=== PATIENT | female | born 1935 | race Caucasian/White ===

== ENCOUNTER → 2017-02-27 | Day surgery (SDC) | payer MEDICARE, OTHER ==
[~2017-02-27] MED LIST: Lactated Ringers 1,000 ML IV SCH; Propofol 200 MG/20 ML SDV IV ONE
[2017-02-27 11:02] VITALS: BP 136/52
--- NOTE | 2017-03-02 07:20 | OR ---
DATE OF OPERATION: 02/27/2017 PREOPERATIVE DIAGNOSIS: POSITIVE COLOGUARD. POSTOPERATIVE DIAGNOSIS: POSITIVE COLOGUARD. SURGEON: Tremaine Lopez MD PROCEDURE: FULL-LENGTH COLONOSCOPY. ANESTHESIA: DREDGE MATE due to advanced age, hypertension and chronic anxiety. COMPLICATIONS: None. SPECIMEN: None. FINDINGS: 1. Full-length colonoscopy. 2. Mild sigmoid diverticulosis. RECOMMENDATIONS: Medical followup Dr. Monzon. Colonoscopy on as-needed basis only. INDICATIONS: The patient reportedly had a positive Cologuard at home. She was sent for colonoscopy. DESCRIPTION OF PROCEDURE: The patient was prepped and draped, placed in the left lateral decubitus position. A lubricated Olympus colonoscope was inserted and easily advanced to the cecum. Direct visualization of the ileocecal valve was accomplished. The bowel prep was adequate. Upon withdrawal of the scope, throughout the entire length of the colon, I could find no obvious signs of mass, polyp, ulceration or bleeding sites. No vascular abnormalities or signs of colitis. The patient had a few scattered diverticula in the sigmoid area, but mild in severity. No inflammatory changes associated with this. The rectal vault was unremarkable. Retroflexion of the scope in the rectum showed no anal lesions. Air was then suctioned. Scope was removed without complication. YULISA/DANIEL /[id number]
== END ==
LOC: CC.SDS 09:00
PROVIDERS: ATTEND Family Medicine
DX: Z12.11 Encounter for screening for malignant neoplasm of colon (principal); K57.30 Diverticulosis of large intestine without perforation or abscess without bleeding; Z88.1 Allergy status to other antibiotic agents; Z88.2 Allergy status to sulfonamides; Z88.8 Allergy status to other drugs, medicaments and biological substances; F41.9 Anxiety disorder, unspecified; K21.9 Gastro-esophageal reflux disease without esophagitis; I10 Essential (primary) hypertension; E78.5 Hyperlipidemia, unspecified; E55.9 Vitamin D deficiency, unspecified; Z79.899 Other long term (current) drug therapy; Z90.49 Acquired absence of other specified parts of digestive tract; Z98.890 Other specified postprocedural states; Z87.891 Personal history of nicotine dependence; Z72.0 Tobacco use; D64.9 Anemia, unspecified
CPT/HCPCS: G0121; J2704; J7120; 00810

== ENCOUNTER 2018-09-18 21:47 | Observation (INO) | payer MEDICARE, OTHER ==
--- NOTE | 2018-09-18 22:06 | EDM.PDOC ---
ED HPI GENERAL MEDICAL PROBLEM - General Chief Complaint: Neuro Symptoms/Deficits Stated Complaint: "feel funny", "couldnt find my words" Time Seen by Provider: 09/18/18 21:49 Source of Information: Reports: Patient, Family (daughter) History Limitations: Reports: No Limitations - History of Present Illness INITIAL COMMENTS - FREE TEXT/NARRATIVE: This patient is an 82 year old female that presents to the ER. Patient is accompanied by her daughter. The patient reports that she was sitting at home talking with her daughter and was talking about someone needing a job. She reports that while she was talking to her daughter, for about a minute she could not find the words she wanted to say. She reports she could not thin of the words. She reports she just felt lost in conversation for a minute. The daughter reports she was just acting weird for a minute and did not talk, like she could not find the words to say. The patient reports that she currently feels nauseated. She reports that during the episode and now she denies yung, dizziness, v, d, f, congestion, drainage, cough, chest pain, shortness of breath , palpitations, abd pain, urinary/bowel changes, rash. The patient is fully alert and oriented. She has no unilateral weakness. Her stroke score in ER is 0. The patient reports she feels generally weak, but no focal weakness. A stroke code was called upn patient arrival due to patient initial cheif complaint of dysphagia, which has since completely resolved. Patient was just admitted in the hospital on 09/07/18 for hyponatremia, hypomagnesium, renal insufficiency, and a-fib. Onset: Today Onset Date: 09/18/18 Onset Time: 21:00 Duration: Minutes: (1) Severity: Mild Improves with: Reports: None Worsens with: Reports: None Associated Symptoms: Reports: Nausea/Vomiting, Weakness (generalized). Denies: Confusion, Chest Pain, Cough, cough w sputum, Diaphoresis, Fever/Chills, Headaches, Loss of Appetite, Malaise, Rash, Seizure, Shortness of Breath, Syncope - Related Data Allergies Allergy/AdvReac Type Severity Reaction Status Date / Time cefaclor [From Ceclor] Allergy Rash Verified 09/18/18 22:34 sulfamethoxazole Allergy Rash Verified 09/18/18 22:34 [From Bactrim] trimethoprim [From Bactrim] Allergy Rash Verified 09/18/18 22:34 Home Meds: Home Meds Fluticasone Propionate [Flonase] 1 spray NASBOTH DAILY PRN 10/23/14 [History] LORazepam [Ativan] 0.25 mg PO DAILY PRN 10/23/14 [History] Metoprolol Succinate [Toprol XL] 25 mg PO BEDTIME 10/23/14 [History] amLODIPine Besylate [Amlodipine Besylate] 2.5 mg PO BEDTIME 10/23/14 [History] Cholecalciferol (Vitamin D3) [Vitamin D3] 5,000 unit PO DAILY 02/26/17 [History] Ibuprofen 200 mg PO Q6H PRN 02/26/17 [History] Omeprazole Magnesium [Prilosec Otc] 20 mg PO DAILY PRN 02/26/17 [History] Candesartan Cilexetil 32 mg PO DAILY 09/07/18 [History] Chlorthalidone 25 mg PO DAILY 09/07/18 [History] hydrALAZINE HCl [Hydralazine HCl] 25 mg PO BID 09/07/18 [History] Past Medical History HEENT History: Reports: Allergic Rhinitis, Impaired Vision, Sinusitis, Other ( See Below) Other HEENT History: TMJ arthralgia Cardiovascular History: Reports: High Cholesterol, Hypertension, Other (See Below) Other Cardiovascular History: Palpitations Gastrointestinal History: Reports: Chronic Constipation, Gastritis, GERD Genitourinary History: Reports: Other (See Below) Other Genitourinary History: nocturia HYGIENE COORDINATOR History: Reports: Other (See Below) Other HYGIENE COORDINATOR History: enlarged utereus Musculoskeletal History: Reports: Arthritis, Osteoporosis, Other (See Below) Other Musculoskeletal History: Impingement syndrome of both shoulders Neurological History: Reports: Headaches, Chronic Psychiatric History: Reports: Anxiety, Other (See Below) Other Psychiatric History: Insomnia Endocrine/Metabolic History: Reports: Vitamin D Deficiency - Past Surgical History HEENT Surgical History: Reports: Cataract Surgery, Tonsillectomy Social & Family History - Family History Family Medical History: Noncontributory Cardiac: Reports: Hypertension - Tobacco Use Smoking Status *Q: Never Smoker - Caffeine Use Caffeine Use: Reports: Coffee - Recreational Drug Use Recreational Drug Use: No ED ROS GENERAL - Review of Systems Review Of Systems: See Below Constitutional: Reports: Weakness (generalized) HEENT: Reports: No Symptoms Respiratory: Reports: No Symptoms Cardiovascular: Reports: No Symptoms Endocrine: Reports: No Symptoms GI/Abdominal: Reports: Nausea. Denies: Abdominal Pain, Diarrhea, Vomiting : Reports: No Symptoms Musculoskeletal: Reports: No Symptoms Skin: Reports: No Symptoms Neurological: Reports: Trouble Speaking (dysphasia). Denies: Confusion, Dizziness, Headache, Numbness, Seizure, Syncope, Tingling, Tremors Psychiatric: Reports: No Symptoms Hematologic/Lymphatic: Reports: No Symptoms Immunologic: Reports: No Symptoms ED EXAM, NEURO - Physical Exam Exam: See Below Exam Limited By: No Limitations General Appearance: Alert, WD/WN, No Apparent Distress Eye Exam: Bilateral Eye: EOMI, Normal Inspection, PERRL Ears: Normal External Exam, Normal Canal, Hearing Grossly Normal, Normal TMs Nose: Normal Inspection, Normal Mucosa, No Blood Throat/Mouth: Normal Inspection, Normal Lips, Normal Teeth, Normal Gums, Normal Oropharynx, Normal Voice, No Airway Compromise Head Exam: Atraumatic, Normocephalic Neck: Normal Inspection, Supple, Non-Tender, Full Range of Motion Respiratory/Chest: No Respiratory Distress, Lungs Clear, Normal Breath Sounds, No Accessory Muscle Use, Chest Non-Tender Cardiovascular: Normal Peripheral Pulses, Regular Rate, Rhythm, No Edema, No Gallop, No JVD, No Murmur, No Rub GI/Abdominal: Normal Bowel Sounds, Soft, Non-Tender, No Organomegaly, No Distention, No Abnormal Bruit, No Mass, Pelvis Stable (Female) Exam: Deferred Rectal (Female) Exam: Deferred Neurological: Alert, Normal Mood/Affect, Normal Dorsiflexion, CN II-XII Intact, Normal Plantar Flexion, Normal Gait, No Motor/Sensory Deficits, Oriented x 3. No: Abnormal Gait, Ataxia, Abnormal Sensation Back Exam: Normal Inspection, Full Range of Motion. No: CVA Tenderness (L), CVA Tenderness (R) Extremities: Normal Inspection, Normal Range of Motion, Non-Tender, No Pedal Edema, Normal Capillary Refill Psychiatric: Normal Affect, Normal Mood Skin Exam: Warm, Dry, Intact, Normal Color, No Rash EKG INTERPRETATION EKG Date: 09/18/18 Time: 21:56 Rhythm: NSR Rate (Beats/Min): 76 QRS: Other (1st degree AV block with PVCs.) Comparison: Change From Previous EKG (last ekg a-fib. No a-fib this ekg.) Course - Vital Signs Last Recorded V/S: Last Vital Signs Temp 98.4 F 09/18/18 22:15 Pulse 72 09/18/18 22:15 Resp 18 09/18/18 22:15 BP 151/82 H 09/18/18 22:15 Pulse Ox 97 09/18/18 22:15 - Orders/Labs/Meds Orders: Active Orders 24 hr Category Date Time Status Chest 2V [CR] Routine Exams 09/18/18 Taken Head wo Cont [CT] Routine Exams 09/18/18 22:43 Taken EKG 12 Lead [EK] Routine Ther 09/18/18 22:29 Ordered Labs: Laboratory Tests 09/18/18 09/18/18 09/18/18 Range/Units 22:05 22:05 22:05 WBC 9.0 (5.0-10.0) 10^3/uL RBC 4.03 (4.00-5.50) 10^6/uL Hgb 11.7 L (12.0-16.0) g/dL Hct 35.0 L (37.0-47.0) % MCV 86.8 (82.0-94.0) fL MCH 29.0 (27.0-32.0) pg MCHC 33.4 (33.0-38.0) g/dL RDW Coeff of Walt 14.4 (11.0-15.0) % Plt Count 215 (150-400) 10^3/uL Neut % (Auto) 49.4 (35-85) % Lymph % (Auto) 37.4 (10-55) % [place] % (Auto) 11.1 (0-16) % Eos % (Auto) 1.8 (0-5) % Baso % (Auto) 0.3 (0-3) % Neut # (Auto) 4.46 (1.80-7.00) 10^3/uL Lymph # (Auto) 3.37 (1.00-4.80) 10^3/uL [place] # (Auto) 1.00 H (0.00-0.80) 10^3/uL Eos # (Auto) 0.16 (0.00-0.45) 10^3/uL Baso # (Auto) 0.03 10^3/uL PT 9.8 (9.7-12.3) SEC INR 0.94 (0.92-1.18) Sodium 132 L (136-145) mEq/L Potassium 4.0 (3.5-5.0) mEq/L Chloride 96 L (98-106) mEq/L Carbon Dioxide 26 (21-32) mmol/L BUN 23 H (7-18) mg/dL Creatinine 1.6 H (0.6-1.0) mg/dL Est Cr Clr Drug Dosing 23.97 mL/min Estimated GFR (MDRD) 31 L (>=60) mL/min Glucose 117 H (75-99) mg/dL Calcium 8.9 (8.4-10.1) mg/dL Magnesium 1.9 (1.8-2.4) mg/dL Total Bilirubin 0.2 (0.0-1.0) mg/dL AST 12 L (15-37) U/L ALT 19 (12-78) U/L Alkaline Phosphatase 86 (46-116) U/L Troponin I < 0.017 (0.00-0.06) ng/mL Total Protein 6.7 (6.4-8.2) g/dL Albumin 2.9 L (3.4-5.0) g/dL Urine Color (YELLOW) Urine Appearance (CLEAR) Urine pH (4.5-8.0) Ur Specific [place] (1.003-1.020) Urine Protein (NEGATIVE) mg/dL Urine Glucose (UA) (NEGATIVE) mg/dL Urine Ketones (NEGATIVE) mg/dL Urine Occult Blood (NEGATIVE) Urine Nitrite (NEGATIVE) Urine Bilirubin (NEGATIVE) Urine Urobilinogen (0.2-1.0) EU/dL Ur Leukocyte Esterase (NEGATIVE) Urine RBC (0-5) /HPF Urine WBC (0-5) /HPF Ur Epithelial Cells (NOT SEEN) /HPF Urine Mucus (NOT SEEN) /HPF 09/18/18 Range/Units 22:20 WBC (5.0-10.0) 10^3/uL RBC (4.00-5.50) 10^6/uL Hgb (12.0-16.0) g/dL Hct (37.0-47.0) % MCV (82.0-94.0) fL MCH (27.0-32.0) pg MCHC (33.0-38.0) g/dL RDW Coeff of Walt (11.0-15.0) % Plt Count (150-400) 10^3/uL Neut % (Auto) (35-85) % Lymph % (Auto) (10-55) % [place] % (Auto) (0-16) % Eos % (Auto) (0-5) % Baso % (Auto) (0-3) % Neut # (Auto) (1.80-7.00) 10^3/uL Lymph # (Auto) (1.00-4.80) 10^3/uL [place] # (Auto) (0.00-0.80) 10^3/uL Eos # (Auto) (0.00-0.45) 10^3/uL Baso # (Auto) 10^3/uL PT (9.7-12.3) SEC INR (0.92-1.18) Sodium (136-145) mEq/L Potassium (3.5-5.0) mEq/L Chloride (98-106) mEq/L Carbon Dioxide (21-32) mmol/L BUN (7-18) mg/dL Creatinine (0.6-1.0) mg/dL Est Cr Clr Drug Dosing mL/min Estimated GFR (MDRD) (>=60) mL/min Glucose (75-99) mg/dL Calcium (8.4-10.1) mg/dL Magnesium (1.8-2.4) mg/dL Total Bilirubin (0.0-1.0) mg/dL AST (15-37) U/L ALT (12-78) U/L Alkaline Phosphatase (46-116) U/L Troponin I (0.00-0.06) ng/mL Total Protein (6.4-8.2) g/dL Albumin (3.4-5.0) g/dL Urine Color Light yellow (YELLOW) Urine Appearance Clear (CLEAR) Urine pH 6.0 (4.5-8.0) Ur Specific [place] 1.010 (1.003-1.020) Urine Protein Negative (NEGATIVE) mg/dL Urine Glucose (UA) Negative (NEGATIVE) mg/dL Urine Ketones Negative (NEGATIVE) mg/dL Urine Occult Blood Negative (NEGATIVE) Urine Nitrite Negative (NEGATIVE) Urine Bilirubin Negative (NEGATIVE) Urine Urobilinogen 0.2 (0.2-1.0) EU/dL Ur Leukocyte Esterase Small H (NEGATIVE) Urine RBC Not seen (0-5) /HPF Urine WBC 0-5 (0-5) /HPF Ur Epithelial Cells Few H (NOT SEEN) /HPF Urine Mucus Occasional H (NOT SEEN) /HPF - Radiology Interpretation Free Text/Narrative:: Head CT: No intracranial abnormality. no bleed, no mass, no shift. CXR: No infiltrates CT Results Date: 09/18/18 CT Results Time: 22:00 - Re-Assessments/Exams Free Text/Narrative Re-Assessment/Exam: 09/18/18 22:31 Will admit for renal insufficiency and general weakness Departure - Departure Time of Disposition: 22:29 Disposition: Refer to Observation Condition: Fair Clinical Impression: Renal insufficiency - Discharge Information *PRESCRIPTION DRUG MONITORING PROGRAM REVIEWED*: Not Applicable *COPY OF PRESCRIPTION DRUG MONITORING REPORT IN PATIENT KORY: Not Applicable Referrals: Tremaine Lopez MD [Primary Care Provider] - Forms: ED Department Discharge - My Orders Last 24 Hours: My Active Orders 09/18/18 Chest 2V [CR] Routine 09/18/18 22:29 EKG 12 Lead [EK] Routine 09/18/18 22:43 Head wo Cont [CT] Routine - Assessment/Plan Last 24 Hours: My Active Orders 09/18/18 Chest 2V [CR] Routine 09/18/18 22:29 EKG 12 Lead [EK] Routine 09/18/18 22:43 Head wo Cont [CT] Routine Plan: PLEASE SEE RN NOTE FOR PFSH. PLEASE USE ER H&P FOR ADMIT H&P
[2018-09-18 22:22] LABS: CHLORIDE,CL 96 mEq/L (98-106); SODIUM,NA 132 mEq/L (136-145)
[2018-09-18] MEDS ORDERED: Sodium Chloride 0.9% 1,000 ML IV SCH (23:09)
[2018-09-18] MEDS ORDERED: Ondansetron 4 MG/2 ML SDV IV PRN (23:09)
[2018-09-18] MEDS ORDERED: Sodium Chloride 0.9% 250 ML IV SCH (23:09)
[2018-09-18] MEDS ORDERED: Ibuprofen 200 MG Tab PO PRN (23:26)
[2018-09-18] MEDS ORDERED: LORazepam 0.5 MG Tab PO PRN (23:30)
[2018-09-18] MEDS ORDERED: Enoxaparin 30 MG/0.3 ML Syringe SUBCUT ONE (23:30)
[2018-09-18] MEDS ORDERED: Fluticasone Propionate Nasal Spray 16 GM Bottle NASBOTH PRN (23:30)
[2018-09-19] MEDS ORDERED: Pantoprazole 40 MG Tab.CR PO SCH (07:00)
[2018-09-19] MEDS ORDERED: Pantoprazole 40 MG Tab.CR PO PRN (07:01)
[2018-09-19 07:30] VITALS: BP 144/65
[2018-09-19] MEDS ORDERED: HYDRALAZINE 25 MG PO SCH (08:00)
[2018-09-19] MEDS ORDERED: Cholecalciferol (Vitamin D3) 1,000 Unit Tab PO SCH (08:00)
[2018-09-19] MEDS ORDERED: Chlorthalidone 25 MG Tab PO SCH (08:00)
[2018-09-19] MEDS ORDERED: CANDESARTAN 32 MG PO SCH (08:00)
--- NOTE | 2018-09-19 10:21 | PCM.DCSUM1 ---
Discharge Summary - Hospital Course HPI Initial Comments: This patient was admitted yesterday for renal insufficiency with elevated CR and dysphasia brief that has since resolved. The patient today has no complaints. She denies yung, dizziness, n, v, d, f, cp, soa, weakness, focal weaknesses. The patient labs yesterday were BUN 23, CR 1.6. Today thyave have improved to BUN 18 and CR 1.1. The patient request to go home today. I agree witi this plan due to labs improved, no complaints since being admitted. The patient may discuss with PCP possible MRI if dysphasia returns or any other symptoms present. Diagnosis: Stroke: No Modified [place] Scale: No Symptoms at All Modified [place] Scale Score: 0 - Discharge Data Discharge Date: 09/19/18 Discharge Disposition: Home, Self-Care 01 Condition: Good - Patient Instructions Diet: Usual Diet as Tolerated Activity: As Tolerated Driving: Do Not Drive Showering/Bathing: May Shower Notify Provider of: Fever, Nausea and/or Vomiting - Discharge Plan *PRESCRIPTION DRUG MONITORING PROGRAM REVIEWED*: Not Applicable *COPY OF PRESCRIPTION DRUG MONITORING REPORT IN PATIENT KORY: Not Applicable Prescriptions/Med Rec: Omeprazole Magnesium [Prilosec Otc] 20 mg PO DAILY PRN #30 tablet.dr PACE Reason: Heartburn Home Medications: Home Meds Fluticasone Propionate [Flonase] 1 spray NASBOTH DAILY PRN 10/23/14 [History] LORazepam [Ativan] 0.25 mg PO DAILY PRN 10/23/14 [History] Metoprolol Succinate [Toprol XL] 25 mg PO BEDTIME 10/23/14 [History] amLODIPine Besylate [Amlodipine Besylate] 2.5 mg PO BEDTIME 10/23/14 [History] Cholecalciferol (Vitamin D3) [Vitamin D3] 5,000 unit PO DAILY 02/26/17 [History] Ibuprofen 200 mg PO Q6H PRN 02/26/17 [History] Candesartan Cilexetil 32 mg PO DAILY 09/07/18 [History] Chlorthalidone 25 mg PO DAILY 09/07/18 [History] hydrALAZINE HCl [Hydralazine HCl] 25 mg PO BID 09/07/18 [History] Omeprazole Magnesium [Prilosec Otc] 20 mg PO DAILY PRN #30 tablet. 09/19/18 [ Rx] Patient Handouts: Dehydration, Adult, [id number] Forms: ED Department Discharge Referrals: Tremaine Lopez MD [Primary Care Provider] - - Discharge Summary/Plan Comment DC Time >30 min.: No Discharge Summary/Plan Comment: Followup with your primary care provider Return to the ER for worsening of condition or any emergent concerns Increase fluids - General Info Date of Service: 09/19/18 Functional Status: Reports: Pain Controlled, Tolerating Diet, Ambulating, Urinating - Review of Systems General: Reports: No Symptoms HEENT: Reports: No Symptoms Pulmonary: Reports: No Symptoms Cardiovascular: Reports: No Symptoms Gastrointestinal: Reports: No Symptoms Genitourinary: Reports: No Symptoms Musculoskeletal: Reports: No Symptoms Skin: Reports: No Symptoms Neurological: Reports: No Symptoms Psychiatric: Reports: No Symptoms - Patient Data Vitals - Most Recent: Last Vital Signs Temp 98.1 F 09/19/18 07:25 Pulse 72 09/18/18 22:15 Resp 18 09/19/18 07:25 BP 144/65 H 09/19/18 07:30 Pulse Ox 97 09/19/18 07:25 Weight - Most Recent: 141 lb 3.2 oz Lab Results - Last 24 hrs: Laboratory Results - last 24 hr 09/18/18 09/18/18 09/18/18 Range/Units 22:05 22:05 22:05 WBC 9.0 (5.0-10.0) 10^3/uL RBC 4.03 (4.00-5.50) 10^6/uL Hgb 11.7 L (12.0-16.0) g/dL Hct 35.0 L (37.0-47.0) % MCV 86.8 (82.0-94.0) fL MCH 29.0 (27.0-32.0) pg MCHC 33.4 (33.0-38.0) g/dL RDW Coeff of [place] 14.4 (11.0-15.0) % Plt Count 215 (150-400) 10^3/uL Neut % (Auto) 49.4 (35-85) % Lymph % (Auto) 37.4 (10-55) % [place] % (Auto) 11.1 (0-16) % Eos % (Auto) 1.8 (0-5) % Baso % (Auto) 0.3 (0-3) % Neut # (Auto) 4.46 (1.80-7.00) 10^3/uL Lymph # (Auto) 3.37 (1.00-4.80) 10^3/uL [place] # (Auto) 1.00 H (0.00-0.80) 10^3/uL Eos # (Auto) 0.16 (0.00-0.45) 10^3/uL Baso # (Auto) 0.03 10^3/uL PT 9.8 (9.7-12.3) SEC INR 0.94 (0.92-1.18) Sodium 132 L (136-145) mEq/L Potassium 4.0 (3.5-5.0) mEq/L Chloride 96 L (98-106) mEq/L Carbon Dioxide 26 (21-32) mmol/L BUN 23 H (7-18) mg/dL Creatinine 1.6 H (0.6-1.0) mg/dL Est Cr Clr Drug Dosing 23.97 mL/min Estimated GFR (MDRD) 31 L (>=60) mL/min Glucose 117 H (75-99) mg/dL Calcium 8.9 (8.4-10.1) mg/dL Magnesium 1.9 (1.8-2.4) mg/dL Total Bilirubin 0.2 (0.0-1.0) mg/dL AST 12 L (15-37) U/L ALT 19 (12-78) U/L Alkaline Phosphatase 86 (46-116) U/L Troponin I < 0.017 (0.00-0.06) ng/mL NT-Pro-B Natriuret Pep (0-1000) pg/mL Total Protein 6.7 (6.4-8.2) g/dL Albumin 2.9 L (3.4-5.0) g/dL Urine Color (YELLOW) Urine Appearance (CLEAR) Urine pH (4.5-8.0) Ur Specific [place] (1.003-1.020) Urine Protein (NEGATIVE) mg/dL Urine Glucose (UA) (NEGATIVE) mg/dL Urine Ketones (NEGATIVE) mg/dL Urine Occult Blood (NEGATIVE) Urine Nitrite (NEGATIVE) Urine Bilirubin (NEGATIVE) Urine Urobilinogen (0.2-1.0) EU/dL Ur Leukocyte Esterase (NEGATIVE) Urine RBC (0-5) /HPF Urine WBC (0-5) /HPF Ur Epithelial Cells (NOT SEEN) /HPF Urine Mucus (NOT SEEN) /HPF 09/18/18 09/19/18 09/19/18 Range/Units 22:20 06:45 06:45 WBC 6.6 (5.0-10.0) 10^3/uL RBC 3.80 L (4.00-5.50) 10^6/uL Hgb 11.0 L (12.0-16.0) g/dL Hct 33.3 L (37.0-47.0) % MCV 87.6 (82.0-94.0) fL MCH 28.9 (27.0-32.0) pg MCHC 33.0 (33.0-38.0) g/dL RDW Coeff of [place] 14.6 (11.0-15.0) % Plt Count 205 (150-400) 10^3/uL Neut % (Auto) 49.0 (35-85) % Lymph % (Auto) 39.1 (10-55) % [place] % (Auto) 9.7 (0-16) % Eos % (Auto) 1.7 (0-5) % Baso % (Auto) 0.5 (0-3) % Neut # (Auto) 3.24 (1.80-7.00) 10^3/uL Lymph # (Auto) 2.58 (1.00-4.80) 10^3/uL [place] # (Auto) 0.64 (0.00-0.80) 10^3/uL Eos # (Auto) 0.11 (0.00-0.45) 10^3/uL Baso # (Auto) 0.03 10^3/uL PT (9.7-12.3) SEC INR (0.92-1.18) Sodium 134 L (136-145) mEq/L Potassium 4.0 (3.5-5.0) mEq/L Chloride 100 (98-106) mEq/L Carbon Dioxide 26 (21-32) mmol/L BUN 18 (7-18) mg/dL Creatinine 1.1 H (0.6-1.0) mg/dL Est Cr Clr Drug Dosing 34.87 mL/min Estimated GFR (MDRD) 47 L (>=60) mL/min Glucose 100 H (75-99) mg/dL Calcium 8.6 (8.4-10.1) mg/dL Magnesium (1.8-2.4) mg/dL Total Bilirubin (0.0-1.0) mg/dL AST (15-37) U/L ALT (12-78) U/L Alkaline Phosphatase (46-116) U/L Troponin I (0.00-0.06) ng/mL NT-Pro-B Natriuret Pep 221 (0-1000) pg/mL Total Protein (6.4-8.2) g/dL Albumin (3.4-5.0) g/dL Urine Color Light yellow (YELLOW) Urine Appearance Clear (CLEAR) Urine pH 6.0 (4.5-8.0) Ur Specific [place] 1.010 (1.003-1.020) Urine Protein Negative (NEGATIVE) mg/dL Urine Glucose (UA) Negative (NEGATIVE) mg/dL Urine Ketones Negative (NEGATIVE) mg/dL Urine Occult Blood Negative (NEGATIVE) Urine Nitrite Negative (NEGATIVE) Urine Bilirubin Negative (NEGATIVE) Urine Urobilinogen 0.2 (0.2-1.0) EU/dL Ur Leukocyte Esterase Small H (NEGATIVE) Urine RBC Not seen (0-5) /HPF Urine WBC 0-5 (0-5) /HPF Ur Epithelial Cells Few H (NOT SEEN) /HPF Urine Mucus Occasional H (NOT SEEN) /HPF Med Orders - Current: Current Medications Amlodipine Besylate (Norvasc) 2.5 mg PO BEDTIME [facility] Chlorthalidone (Chlorthalidone) 25 mg PO DAILY [facility] Last Admin: 09/19/18 07:31 Dose: Not Given Cholecalciferol (Vitamin D3) 5,000 units PO DAILY [facility] Last Admin: 09/19/18 07:31 Dose: Not Given Fluticasone Propionate (Flonase) 0 gm NASBOTH DAILY PRN PRN Reason: allergies Hydralazine HCl (Apresoline) 25 mg PO BID [facility] Last Admin: 09/19/18 07:30 Dose: 25 mg Sodium Chloride (Normal Saline) 1,000 mls @ 100 mls/hr IV ASDIRECTED [facility] Last Admin: 09/19/18 07:33 Dose: 100 mls/hr Sodium Chloride (Normal Saline) 250 mls @ 250 mls/hr IV .BOLUS [facility] Last Admin: 09/18/18 23:45 Dose: 250 mls/hr Ibuprofen (Motrin) 200 mg PO Q6H PRN PRN Reason: pain Lorazepam (Ativan) 0.25 mg PO DAILY PRN PRN Reason: Anxiety Metoprolol Succinate (Toprol Xl) 25 mg PO BEDTIME [facility] Ondansetron HCl (Zofran) 4 mg IV Q6H PRN PRN Reason: Nausea/Vomiting Pantoprazole Sodium (Protonix) 40 mg PO ACBREAKFAST PRN PRN Reason: Indigestion Candesartan 32 Mg Tab*Patient's Own Medication* 1 each PO DAILY [facility] Last Admin: 09/19/18 07:30 Dose: 1 each Discontinued Medications Enoxaparin Sodium (Lovenox) 30 mg SUBCUT ONETIME ONE Stop: 09/18/18 23:31 Last Admin: 09/18/18 23:44 Dose: 30 mg Pantoprazole Sodium (Protonix) 40 mg PO ACBREAKFAST [facility] Last Admin: 09/19/18 06:48 Dose: Not Given - Exam General: Reports: Alert, Oriented, Cooperative, No Acute Distress HEENT: Reports: Pupils Equal, Pupils Reactive, EOMI, Mucous Membr. Moist/[place] Neck: Reports: Supple, Trachea Midline, No JVD, No Thyromegaly Lungs: Reports: Clear to Auscultation, Normal Respiratory Effort Cardiovascular: Reports: Regular Rate, Regular Rhythm, No Murmurs GI/Abdominal Exam: Normal Bowel Sounds, Soft, Non-Tender, No Organomegaly, No Distention, No Abnormal Bruit, No Mass, Pelvis Stable Back Exam: Reports: Normal Inspection, Full Range of Motion Extremities: Normal Inspection, Normal Range of Motion, Non-Tender, No Pedal Edema, Normal Capillary Refill Skin: Reports: Warm, Dry, Intact Neurological: Reports: No New Focal Deficit Psy/Mental Status: Reports: Alert, Normal Affect, Normal Mood
[2018-09-19] MEDS ORDERED: Metoprolol Succinate 25 MG Tab.ER PO SCH (20:00)
[2018-09-19] MEDS ORDERED: amLODIPine 2.5 MG Tab PO SCH (20:00)
== END 2018-09-19 14:10 | disposition home or self-care (01) ==
LOC: CC.ED 21:47 → UNDOADMOB 22:47 → CC.MS 22:47 → CC.ED 23:00 → UNDODISOB 09-19 14:10
PROVIDERS: ADMIT Nurse Practitioner; ATTEND Family Medicine
DX: R47.02 Dysphasia (principal); N28.9 Disorder of kidney and ureter, unspecified; I10 Essential (primary) hypertension; E78.00 Pure hypercholesterolemia, unspecified; F41.9 Anxiety disorder, unspecified; Z79.899 Other long term (current) drug therapy; Z88.1 Allergy status to other antibiotic agents; Z88.2 Allergy status to sulfonamides
CPT/HCPCS: 36415; 70450; 71046; 80048; 80053; 81001; 83735; 83880; 84484; 85025; 85610; 93005; 96360; 96361; 96372; 99285; A9270-GY; G0378; J1650; J7030; J7040

== ENCOUNTER 2019-08-08 07:31 | Observation (INO) | payer MEDICARE, OTHER ==
[2019-08-08 08:11] LABS: CHLORIDE,CL 101 mEq/L (98-106); SODIUM,NA 138 mEq/L (136-145)
--- NOTE | 2019-08-08 08:18 | EDM.PDOC ---
ED HPI GENERAL MEDICAL PROBLEM - General Chief Complaint: Abdominal Pain Stated Complaint: BLEEDING FROM THE RECTUM Time Seen by Provider: 08/08/19 07:45 Source of Information: Reports: Patient, RN History Limitations: Reports: No Limitations - History of Present Illness INITIAL COMMENTS - FREE TEXT/NARRATIVE: States that last evening she ate normal supper and a "handful" of peanuts and felt well. She went to [place] and then had explosive diarrhea and vomiting. She felt better after that. Ate the same as everyone else did and no one else became ill. She went to bed normally and woke up at 0200 and had bloody diarrhea and has total of 3 stools during the night. She does have history of diverticulosis. She does have some cramping at this time. She was recently treated for C-diff by Dr. Monzon and was feeling well. She is scheduled for colonoscopy with Dr. Lopez on August 19. She denies any fever or further vomiting. Onset Date: 08/07/19 Location: Reports: Abdomen Associated Symptoms: Reports: Nausea/Vomiting Bilateral Abdomen Pain Score (Numeric/FACES): 3 - Related Data Allergies Allergy/AdvReac Type Severity Reaction Status Date / Time cefaclor [From Ceclor] Allergy Rash Verified 09/18/18 22:34 sulfamethoxazole Allergy Rash Verified 09/18/18 22:34 [From Bactrim] trimethoprim [From Bactrim] Allergy Rash Verified 09/18/18 22:34 Home Meds: Home Meds Fluticasone Propionate [Flonase] 1 spray NASBOTH DAILY PRN 10/23/14 [History] LORazepam [Ativan] 0.25 mg PO DAILY PRN 10/23/14 [History] Metoprolol Succinate [Toprol XL] 25 mg PO BEDTIME 10/23/14 [History] amLODIPine Besylate [Amlodipine Besylate] 2.5 mg PO BEDTIME 10/23/14 [History] Cholecalciferol (Vitamin D3) [Vitamin D3] 5,000 unit PO DAILY 02/26/17 [History] Ibuprofen 200 mg PO Q6H PRN 02/26/17 [History] Candesartan Cilexetil 32 mg PO DAILY 09/07/18 [History] hydrALAZINE HCl [Hydralazine HCl] 25 mg PO BID 09/07/18 [History] Omeprazole Magnesium [Prilosec Otc] 20 mg PO DAILY PRN #30 tablet. 09/19/18 [ Rx] Past Medical History HEENT History: Reports: Allergic Rhinitis, Impaired Vision, Sinusitis, Other ( See Below) Other HEENT History: TMJ arthralgia Cardiovascular History: Reports: High Cholesterol, Hypertension, Other (See Below) Other Cardiovascular History: Palpitations Gastrointestinal History: Reports: Chronic Constipation, Gastritis, GERD Genitourinary History: Reports: Other (See Below) Other Genitourinary History: nocturia ADMITTING MANAGER History: Reports: Other (See Below) Other ADMITTING MANAGER History: enlarged utereus Musculoskeletal History: Reports: Arthritis, Back Pain, Chronic, Osteoporosis, Other (See Below) Other Musculoskeletal History: Impingement syndrome of both shoulders. plantarfascitis Neurological History: Reports: Headaches, Chronic Psychiatric History: Reports: Anxiety, Other (See Below) Other Psychiatric History: Insomnia Endocrine/Metabolic History: Reports: Vitamin D Deficiency - Past Surgical History HEENT Surgical History: Reports: Cataract Surgery, Tonsillectomy Social & Family History - Family History Family Medical History: Noncontributory Cardiac: Reports: Hypertension - Tobacco Use Smoking Status *Q: Former Smoker Years of Tobacco use: 20 Packs/Tins Daily: 0.5 Used Tobacco, but Quit: Yes Month/Year Tobacco Last Used: 1979 - Caffeine Use Caffeine Use: Reports: Coffee - Recreational Drug Use Recreational Drug Use: No - Living Situation & Occupation Living situation: Reports: , with Family Occupation: Retired ED ROS GENERAL - Review of Systems Review Of Systems: See Below Constitutional: Denies: Fever, Chills, Weakness Respiratory: Reports: No Symptoms Cardiovascular: Reports: No Symptoms GI/Abdominal: Reports: Abdominal Pain, Bloody Stool, Diarrhea, Vomiting Skin: Reports: No Symptoms Neurological: Reports: No Symptoms ED EXAM, GI/ABD - Physical Exam Exam: See Below Exam Limited By: No Limitations General Appearance: Alert, WD/WN, No Apparent Distress Ears: Normal External Exam, Normal Canal Throat/Mouth: Normal Inspection, Normal Oropharynx Head: Atraumatic Neck: Normal Inspection, Supple, Non-Tender, Full Range of Motion Respiratory/Chest: No Respiratory Distress, Lungs Clear, Normal Breath Sounds Cardiovascular: Regular Rate, Rhythm, No Edema GI/Abdominal Exam: Normal Bowel Sounds, Soft, Tender (mildly tender to the lower abdomen with palpation. No guarding or rigidity noted.) Rectal (Female) Exam: Normal Rectal Tone, Bloody Stool, Heme + Stool Extremities: Normal Inspection Neurological: Alert, Oriented Skin Exam: Warm, Dry, Intact Course - Vital Signs Last Recorded V/S: Last Vital Signs Temp 98.4 F 08/08/19 07:46 Pulse 87 08/08/19 07:46 Resp 18 08/08/19 07:46 BP 162/77 H 08/08/19 07:46 Pulse Ox 98 08/08/19 07:46 - Orders/Labs/Meds Orders: Active Orders 24 hr Category Date Time Status Abdomen 2V AP Flat Upright [CR] Stat Exams 08/08/19 07:44 Taken Labs: Laboratory Tests 08/08/19 08/08/19 Range/Units 07:50 07:50 WBC 12.3 H (5.0-10.0) 10^3/uL RBC 4.44 (4.00-5.50) 10^6/uL Hgb 12.7 (12.0-16.0) g/dL Hct 38.8 (37.0-47.0) % MCV 87.4 (82.0-94.0) fL MCH 28.6 (27.0-32.0) pg MCHC 32.7 L (33.0-38.0) g/dL RDW Coeff of Walt 14.3 (11.0-15.0) % Plt Count 247 (150-400) 10^3/uL Neut % (Auto) 61.2 (35-85) % Lymph % (Auto) 26.4 (10-55) % [place] % (Auto) 11.2 (0-16) % Eos % (Auto) 1.0 (0-5) % Baso % (Auto) 0.2 (0-3) % Neut # (Auto) 7.51 H (1.80-7.00) 10^3/uL Lymph # (Auto) 3.24 (1.00-4.80) 10^3/uL [place] # (Auto) 1.37 H (0.00-0.80) 10^3/uL Eos # (Auto) 0.12 (0.00-0.45) 10^3/uL Baso # (Auto) 0.02 10^3/uL Sodium 138 (136-145) mEq/L Potassium 3.9 (3.5-5.0) mEq/L Chloride 101 (98-106) mEq/L Carbon Dioxide 25 (21-32) mmol/L BUN 13 (7-18) mg/dL Creatinine 0.9 (0.6-1.0) mg/dL Est Cr Clr Drug Dosing 40.18 mL/min Estimated GFR (MDRD) 60 (>=60) mL/min Glucose 112 H (75-99) mg/dL Calcium 8.8 (8.4-10.1) mg/dL Total Bilirubin 0.3 (0.0-1.0) mg/dL AST 17 (15-37) U/L ALT 18 (12-78) U/L Alkaline Phosphatase 76 (46-116) U/L C-Reactive Protein < 0.2 L (0.2-0.8) mg/dL Total Protein 6.5 (6.4-8.2) g/dL Albumin 3.3 L (3.4-5.0) g/dL - Re-Assessments/Exams Free Text/Narrative Re-Assessment/Exam: 08/08/19 08:25 Discussed with pt and daughter to admit observation to monitor stools for increase bleeding. Will recheck hgb later today and in the morning. Departure - Departure Time of Disposition: 08:30 Disposition: Refer to Observation Condition: Fair Clinical Impression: Rectal bleeding Abdominal pain Qualifiers: Abdominal location: lower abdomen, unspecified Qualified Code(s): R10.30 - Lower abdominal pain, unspecified - Discharge Information *PRESCRIPTION DRUG MONITORING PROGRAM REVIEWED*: Not Applicable *COPY OF PRESCRIPTION DRUG MONITORING REPORT IN PATIENT KORY: Not Applicable - Problem List & Annotations (1) Abdominal pain SNOMED Code(s): 43047352 Code(s): R10.9 - UNSPECIFIED ABDOMINAL PAIN Status: Acute Priority: High Current Visit: Yes Qualifiers: Abdominal location: lower abdomen, unspecified Qualified Code(s): R10.30 - Lower abdominal pain, unspecified (2) Rectal bleeding SNOMED Code(s): 40081598 Code(s): K62.5 - HEMORRHAGE OF ANUS AND RECTUM Status: Acute Priority: High Current Visit: Yes - Problem List Review Problem List Initiated/Reviewed/Updated: Yes - My Orders Last 24 Hours: My Active Orders 08/08/19 07:44 Abdomen 2V AP Flat Upright [CR] Stat - Assessment/Plan Last 24 Hours: My Active Orders 08/08/19 07:44 Abdomen 2V AP Flat Upright [CR] Stat
[2019-08-08] MEDS ORDERED: Sodium Chloride 0.9% 10 ML Syringe FLUSH PRN (09:32)
[2019-08-08] MEDS ORDERED: Ondansetron 4 MG Tab.DIS PO PRN (09:32)
[2019-08-08] MEDS: Sodium Chloride 0.9% 1,000 ML IV SCH ×2 (09:52→22:53)
[2019-08-08] MEDS ORDERED: Pantoprazole 40 MG Vial IVPUSH SCH (10:15)
[2019-08-08] MEDS ORDERED: hydrALAZINE 25 MG Tab PO SCH (10:15)
[2019-08-08] MEDS ORDERED: LORazepam 0.5 MG Tab PO PRN (11:15)
[2019-08-08] MEDS: Pantoprazole 40 MG Vial IVPUSH SCH (11:23)
[2019-08-08] MEDS ORDERED: LORAZEPAM 1 MG PO PRN (13:08)
[2019-08-08] MEDS: CANDESARTAN 32 MG PO SCH (13:35)
[2019-08-08] MEDS: hydrALAZINE 25 MG Tab**PTOM PO SCH (19:29)
[2019-08-08] MEDS ORDERED: Metoprolol Succinate 25 MG Tab.ER PO SCH (20:00)
[2019-08-08] MEDS ORDERED: AMLODIPINE 5 MG PO SCH (20:00)
[2019-08-08] MEDS ORDERED: METOPROLOL SUCCINATE 50 MG PO SCH (20:00)
[2019-08-09] MEDS: hydrALAZINE 25 MG Tab**PTOM PO SCH (07:50)
[2019-08-09] MEDS: CANDESARTAN 32 MG PO SCH (07:51)
[2019-08-09 07:52] VITALS: BP 133/61
[2019-08-09 07:57] VITALS: PULSE 70
--- NOTE | 2019-08-09 08:50 | PCM.DCSUM1 ---
Discharge Summary - Hospital Course Diagnosis: Stroke: No Modified [place] Scale: No Symptoms at All Modified [place] Scale Score: 0 - Discharge Data Discharge Date: 08/09/19 Discharge Disposition: Home, Self-Care 01 Condition: Good - Referral to Home Health Primary Care Physician: PCP None - Patient Instructions Diet: GI Soft/Low Residue/Low Fiber Activity: As Tolerated - Discharge Plan *PRESCRIPTION DRUG MONITORING PROGRAM REVIEWED*: No *COPY OF PRESCRIPTION DRUG MONITORING REPORT IN PATIENT KORY: No Prescriptions/Med Rec: Pantoprazole Sodium [Protonix] 40 mg PO DAILY #30 tablet. Home Medications: Home Meds Fluticasone Propionate [Flonase] 1 spray NASBOTH DAILY PRN 10/23/14 [History] LORazepam [Ativan] 0.25 mg PO DAILY PRN 10/23/14 [History] Metoprolol Succinate [Toprol XL] 50 mg PO BEDTIME 10/23/14 [History] amLODIPine Besylate [Amlodipine Besylate] 2.5 mg PO BEDTIME 10/23/14 [History] Cholecalciferol (Vitamin D3) [Vitamin D3] 5,000 unit PO DAILY 02/26/17 [History] Ibuprofen 200 mg PO Q6H PRN 02/26/17 [History] Candesartan Cilexetil 32 mg PO DAILY 09/07/18 [History] hydrALAZINE HCl [Hydralazine HCl] 25 mg PO BID 09/07/18 [History] Pantoprazole Sodium [Protonix] 40 mg PO DAILY #30 tablet. 08/09/19 [Rx] Forms: ED Department Discharge Referrals: Jae Monzon MD [Ordering Only Provider] - (Follow up with Dr. Monzon on Thursday ) - Patient Data Vitals - Most Recent: Last Vital Signs Temp 97.6 F 08/09/19 07:56 Pulse 70 08/09/19 07:56 Resp 16 08/09/19 07:56 BP 133/61 08/09/19 07:56 Pulse Ox 98 08/09/19 07:56 Weight - Most Recent: 139 lb 4.8 oz I&O - Last 24 hours: Intake & Output 08/08/19 08/09/19 08/09/19 22:59 06:59 14:59 Intake Total 1276 500 Output Total 400 650 Balance 876 -150 Lab Results - Last 24 hrs: Laboratory Results - last 24 hr 08/08/19 08/08/19 08/09/19 Range/Units 12:05 17:30 07:10 WBC 10.9 H (5.0-10.0) 10^3/uL RBC 4.10 (4.00-5.50) 10^6/uL Hgb 12.4 12.1 11.9 L (12.0-16.0) g/dL Hct 37.5 36.7 L 36.1 L (37.0-47.0) % MCV 88.0 (82.0-94.0) fL MCH 29.0 (27.0-32.0) pg MCHC 33.0 (33.0-38.0) g/dL RDW Coeff of Walt 14.5 (11.0-15.0) % Plt Count 239 (150-400) 10^3/uL Neut % (Auto) 55.2 (35-85) % Lymph % (Auto) 32.7 (10-55) % [place] % (Auto) 10.4 (0-16) % Eos % (Auto) 1.5 (0-5) % Baso % (Auto) 0.2 (0-3) % Neut # (Auto) 6.03 (1.80-7.00) 10^3/uL Lymph # (Auto) 3.57 (1.00-4.80) 10^3/uL [place] # (Auto) 1.14 H (0.00-0.80) 10^3/uL Eos # (Auto) 0.16 (0.00-0.45) 10^3/uL Baso # (Auto) 0.02 10^3/uL Med Orders - Current: Current Medications Hydralazine HCl (Apresoline) 25 mg PO BID [facility] Last Admin: 08/09/19 07:50 Dose: 25 mg Sodium Chloride (Normal Saline) 1,000 mls @ 75 mls/hr IV ASDIRECTED [facility] Last Admin: 08/08/19 22:53 Dose: 75 mls/hr Amlodipine 5 Mg (Tablet Own Med) 0 each PO BEDTIME [facility] Last Admin: 08/08/19 19:28 Dose: 1 each Candesartan 32 Mg (Own Med) 32 mg PO DAILY [facility] Last Admin: 08/09/19 07:51 Dose: 32 mg Metoprolol Succinate (50 MgOwn Med) 0 each PO BEDTIME [facility] Last Admin: 08/08/19 19:30 Dose: 1 each Lorazepam 1 Mg (TabletOwn Med) 0 each PO BEDTIME PRN PRN Reason: ANXIETY Ondansetron HCl (Zofran Odt) 4 mg PO Q4H PRN PRN Reason: nausea, able to take PO Pantoprazole Sodium (Protonix Iv) 40 mg IVPUSH Q24H [facility] Last Admin: 08/08/19 11:23 Dose: 40 mg Sodium Chloride (Saline Flush) 10 ml FLUSH ASDIRECTED PRN PRN Reason: Keep Vein Open Discontinued Medications Hydralazine HCl (Apresoline) 25 mg PO BID [facility] Last Admin: 08/08/19 11:24 Dose: Not Given Lorazepam (Ativan) 0.25 mg PO DAILY PRN PRN Reason: ANXIETY Metoprolol Succinate (Toprol Xl) 25 mg PO BEDTIME [facility] Pantoprazole Sodium (Protonix Iv) 40 mg IVPUSH Q24H [facility] Last Admin: 08/08/19 13:36 Dose: Not Given
[2019-08-09] MEDS: Pantoprazole 40 MG Vial IVPUSH SCH (09:30)
== END 2019-08-09 10:15 | disposition home or self-care (01) ==
LOC: CC.ED 07:31 → CC.MS 08:14 → UNDOADMOB 08:14 → CC.MS 09:10
PROVIDERS: ADMIT Physician Assistant Medical; ATTEND Family Medicine
DX: K62.5 Hemorrhage of anus and rectum (principal); R10.30 Lower abdominal pain, unspecified; K21.9 Gastro-esophageal reflux disease without esophagitis; E78.00 Pure hypercholesterolemia, unspecified; I10 Essential (primary) hypertension; E55.9 Vitamin D deficiency, unspecified; M19.90 Unspecified osteoarthritis, unspecified site; M81.0 Age-related osteoporosis without current pathological fracture; F41.9 Anxiety disorder, unspecified; Z88.1 Allergy status to other antibiotic agents; Z88.2 Allergy status to sulfonamides; Z79.899 Other long term (current) drug therapy; Z87.891 Personal history of nicotine dependence
CPT/HCPCS: 36415; 74019; 80053; 85014; 85018; 85025; 86140; 96361; 96374; 96376; 99285-25; A9270-GY; C9113; G0378; J7030

== ENCOUNTER → 2019-08-19 | Day surgery (SDC) | payer MEDICARE, OTHER ==
[2019-08-19 11:03] VITALS: BP 144/61; PULSE 78
--- NOTE | 2019-08-19 13:54 | OR ---
DATE OF OPERATION: 08/19/2019 PREOPERATIVE DIAGNOSIS: 1. GASTROESOPHAGEAL REFLUX DISEASE. 2. BRIGHT RED BLOOD PER RECTUM. POSTOPERATIVE DIAGNOSIS: 1. GASTROESOPHAGEAL REFLUX DISEASE. 2. BRIGHT RED BLOOD PER RECTUM. SURGEON: Tremaine Lopez MD PROCEDURE: 1. ESOPHAGOGASTRODUODENOSCOPY WITH SONIYA. 2. FULL-LENGTH COLONOSCOPY WITH FORCEPS POLYP REMOVAL X2. ANESTHESIA: MAC. COMPLICATIONS: None. SPECIMEN: 1. Antral SONIYA. 2. Two small sessile polyps, right colon. FINDINGS: 1. Full-length EGD. 2. Minimal spontaneous GERD without distal esophagitis, reflux ulceration, or Schaefer's changes. 3. Full-length colonoscopy. 4. Mild to moderate sigmoid and rectosigmoid diverticulosis. 5. Two small sessile polyps, right colon. RECOMMENDATIONS: 1. Ongoing treatment for her mild and persistent reflux. 2. Followup colonoscopy p.r.n. at this point given the patient's age and likely hyperplastic polyps. Bleeding statistically likely came from her diverticular disease. INDICATIONS: The patient was seen by her primary physician, Dr. Jae Monzon, for some bright red blood per rectum. She had had a bout of diarrhea about a month or two ago, it resolved, and she has had normal stool since then, but about a couple of weeks ago, she did have a one day of bloody stools. She does have chronic reflux. Dr. Monzon sent her for upper and lower endoscopy. DESCRIPTION OF PROCEDURE: The patient was prepped and draped, placed in the left lateral decubitus position. A lubricated Olympus gastroscope was inserted over a bit, advanced to the cricopharyngeus area, and easily intubated into the esophagus. The esophageal lining was benign in its entire course. The Z-line was crisp and sharp at 40 cm. There was some minimal spontaneous reflux seen. No distal esophagitis, stricturing, ulceration, or Schaefer's changes. The scope was advanced into the stomach through the pylorus and into the second portion of the duodenum. This and the duodenal bulb were completely unremarkable. The scope was brought back into the stomach and retroflexed. The upper fundus and cardia were benign. Upon straightening, the rest of the fundus and antrum were essentially unremarkable. I did do a CLOtest. Air was then suctioned and the scope removed from the stomach without complication. A lubricated Olympus colonoscope was then inserted and with relative ease advanced to the cecum. Direct visualization of the ileocecal valve and appendiceal orifice accomplished. We were also able to intubate into the terminal ileum, which was benign. The bowel prep was excellent. Upon withdrawal, in the mid ascending colon, the patient had a small flat sessile polyp, likely hyperplastic, removed in its entirety with 2 cold forceps biopsies. The rest of the ascending and transverse colons were benign. Right at the splenic flexure, the patient had a second small sessile polyp, also about 2 to 3 mm, removed easily with forceps. The descending colon and proximal sigmoid were unremarkable. In the mid sigmoid and into the rectosigmoid junction, the patient had mild to moderate diverticular disease. No inflammatory changes or bleeding sites were seen. The rectal vault appeared benign. Retroflexion showed no perianal lesions. Air was suctioned and scope removed without complication. YULISA/DANIEL /[id number] CC: Jae Monzon MD [facility] [place] [id number]
== END ==
LOC: CC.SDS 08:41
PROVIDERS: ATTEND Family Medicine
DX: K57.31 Diverticulosis of large intestine without perforation or abscess with bleeding (principal); K21.9 Gastro-esophageal reflux disease without esophagitis; D12.2 Benign neoplasm of ascending colon; D12.3 Benign neoplasm of transverse colon; E78.5 Hyperlipidemia, unspecified; F41.9 Anxiety disorder, unspecified; M19.90 Unspecified osteoarthritis, unspecified site; M81.0 Age-related osteoporosis without current pathological fracture; J45.909 Unspecified asthma, uncomplicated; I10 Essential (primary) hypertension; E78.00 Pure hypercholesterolemia, unspecified; Z88.1 Allergy status to other antibiotic agents; Z88.2 Allergy status to sulfonamides; Z88.8 Allergy status to other drugs, medicaments and biological substances; Z79.899 Other long term (current) drug therapy; Z79.82 Long term (current) use of aspirin; Z87.891 Personal history of nicotine dependence
CPT/HCPCS: 43239; 45380; 87081; J2704; J7120; 00813

== ENCOUNTER 2022-04-24 09:29 | Emergency (ER) | payer MEDICARE, OTHER ==
[2022-04-24 10:04] VITALS: BP 180/78; PULSE 76
== END 2022-04-24 10:35 | disposition home or self-care (01) ==
LOC: CC.ED 09:29
DX: S52.125A Nondisplaced fracture of head of left radius, initial encounter for closed fracture (principal); E78.00 Pure hypercholesterolemia, unspecified; I10 Essential (primary) hypertension; K21.9 Gastro-esophageal reflux disease without esophagitis; Z88.1 Allergy status to other antibiotic agents; Z88.5 Allergy status to narcotic agent; Z88.8 Allergy status to other drugs, medicaments and biological substances; Z79.82 Long term (current) use of aspirin; Z79.899 Other long term (current) drug therapy; W18.30XA Fall on same level, unspecified, initial encounter
CPT/HCPCS: 73110-LT; 99283